=== PATIENT | female | born 1945 | race Caucasian/White ===

== ENCOUNTER 2023-01-12 16:01 | Emergency (ER) | payer MEDICARE, BC, SELFPAY ==
[2023-01-12] VITALS (7 sets, daily range): BP systolic 161–195; BP diastolic 70–85; PULSE 73–80; RESP 14–19; TEMP 36.9; O2SAT 97–100; BMI 22.4
--- NOTE | 2023-01-12 16:12 | DI.RAD.S_ITS ---
PROCEDURE: XR CHEST 1V INDICATIONS: chest pain TECHNIQUE: One view of the chest was acquired. COMPARISON: [facility], , CHEST 2VW, 01/06/2015, 15:18. FINDINGS: Surgical changes and devices: None. Lungs and pleura: Lungs are clear. No pleural effusions or pneumothorax. Mediastinum: Mediastinal contours appear normal. Heart size is normal. Bones and chest wall: No suspicious bony lesions. Overlying soft tissues appear unremarkable. IMPRESSION: No acute cardiopulmonary disease. Dictated by: Venus Sotelo M.D. on 01/12/2023 at 16:34 Approved by: Venus Sotelo M.D. on 01/12/2023 at 16:35
--- NOTE | 2023-01-12 16:17 | DI.CT.S_ITS ---
PROCEDURE: CT HEAD/BRAIN WO CON INDICATIONS: syncope/hit head TECHNIQUE: Noncontrast 4.5 mm thick angled axial sections acquired from the foramen magnum to the vertex, with coronal and sagittal reformats. For radiation dose reduction, the following was used: automated exposure control, adjustment of mA and/or kV according to patient size. COMPARISON: None. FINDINGS: Image quality: Excellent. CSF spaces: Basal cisterns are patent. No extra-axial fluid collections. The ventricles are symmetric in size and shape. Brain: No intracranial bleeds or masses. There is cerebral volume loss for age, with resultant ventricular and sulcal prominence. There are periventricular and deep white matter chronic small vessel ischemic changes. There is intracranial internal carotid artery atherosclerosis. Skull and face: Calvarium and visualized facial bones appear intact, without suspicious lesions. Sinuses: Visualized sinuses and mastoids are clear. IMPRESSION: 1. No acute intracranial abnormalities. 2. Cerebral volume loss and chronic microvascular ischemic changes. Dictated by: Venus Sotelo M.D. on 01/12/2023 at 16:40 Approved by: Venus Sotelo M.D. on 01/12/2023 at 16:41
--- NOTE | 2023-01-12 16:17 | DI.CT.S_ITS ---
PROCEDURE: CT CERVICAL SPINE WO CON INDICATIONS: syncope/hit head TECHNIQUE: Noncontrast 3 mm thick sections acquired from the skull base to the T4 level. Sagittal and coronal reformats were then constructed. For radiation dose reduction, the following was used: automated exposure control, adjustment of mA and/or kV according to patient size. COMPARISON: None. FINDINGS: Image quality: Excellent. Bones: No fractures or dislocations. There is grade 1 anterolisthesis of C4 on C5 and C6 and C7. Moderate degenerative disc disease at C3-C4, C4-C5, C5-C6 and C6-C7. There is severe bilateral facet arthropathy, most pronounced at C4-C5 and C5-C6 on the left and C6-C7 on the right. Visualized superior ribs are intact. Soft tissues: Prevertebral soft tissues are normal in thickness. No paravertebral hematomas. No apical pneumothoraces. IMPRESSION: 1. No acute osseous abnormality. 2. Degenerative changes in cervical spine. Dictated by: Venus Sotelo M.D. on 01/12/2023 at 16:41 Approved by: Venus Sotelo M.D. on 01/12/2023 at 16:45
[2023-01-12 17:21] LABS: Add Manual Diff / Slide Review NO; Basophils Absolute Auto 100 /uL (0-100); Basophils Percent Auto 0.5 % (0-2); Eosinophils Absolute Auto 0 /uL (0-450); Eosinophils Percent Auto 0.4 % (2-4); Hematocrit 36.2 % (36-46); Hemoglobin 12.2 g/dL (12.0-16.0); Lymphocytes Absolute Auto 1700 /uL (1100-4500); Lymphocytes Percent Auto 15.3 % (25-40); Mean Corpuscular HGB Conc 33.6 % (30-36); Mean Corpuscular Hemoglobin 32.3 PG (26-34); Mean Corpuscular Volume 96.1 fL (80-100); Monocytes Absolute Auto 1000 /uL (0-900); Monocytes Percent Auto 9.3 % (3-14); Neutrophils Absolute Auto 8300 /uL (1500-7000); Neutrophils Percent Auto 74.5 % (50-75); Platelet Count 177 X10^3/uL (150-400); Red Blood Cell Count 3.77 X10^6/uL (4.0-5.2); Red Cell Distribution Width 13.7 % (11.6-14.8); White Blood Cell Count 11.1 X10^3/uL (4.5-11.0)
[2023-01-12 17:34] LABS: PTT Partial Thromboplastin Tim 27 SECONDS (26-36)
[2023-01-12 17:37] LABS: Alanine Aminotransferase 22 IU/L (<35); Albumin 4.4 g/dL (3.5-5.0); Albumin Globulin Ratio 1.4 (1.0-2.8); Alkaline Phosphatase 80 U/L (38-126); Aspartate Aminotransferase 33 IU/L (14-36); BUN Creatinine Ratio 22.8 (6-22); Bilirubin Total 1.3 mg/dL (0.2-1.3); Blood Urea Nitrogen 13 mg/dL (7-17); Carbon Dioxide 27 mmol/L (22-32); Chloride 102 mmol/L (98-107); Creatine Kinase 198 U/L (30-135); Estimated Glomerular Filt Rate > 60 mL/min (>60); Globulin 3.2 g/dL (1.7-4.1); Glucose 106 mg/dL (80-110); HEMOLYSIS < 15 (0-50); Lipase 49 U/L (23-300); Magnesium 1.9 mg/dL (1.6-2.3); Potassium 3.9 mmol/L (3.4-5.1); Sodium 136 mmol/L (137-145); Total Protein 7.6 g/dL (6.3-8.2)
[2023-01-12 17:46] LABS: Troponin I < 0.012 ng/mL (0.01-0.034)
[2023-01-12] MEDS: LOSARTAN 25 MG TABLET PO (19:50)
[2023-01-12] MEDS: ATORVASTATIN 20 MG TABLET PO (19:50)
--- NOTE | 2023-01-12 20:25 | ED.SYNCOPE ---
HPI - Syncope General Chief Complaint: Syncope Stated Complaint: fell [place] in [place]/syncope/head inj Time Seen by Provider: 01/12/23 19:14 Source: patient Mode of arrival: Ambulatory Limitations: no limitations History of Present Illness HPI narrative: Patient is a 77-year-old female history of hypertension hyperlipidemia presenting today with a syncopal episode around 3:00 a.m. while on a boat. She reports that she got up to use the ?head? then suddenly she passed out hitting her head. She then proceeded to vomit at least 10 times over the next 1 hour. No numbness tingling or weakness. She is not on antiplatelet or anti coagulation medication. She has not shown up for over 12 hours. Awake alert. She denies any fever or chills. No chest pain palpitations or shortness of breath. No abdominal pain. Related Data Home Medications Medication Instructions Recorded Confirmed [VITAMIN D] Unknown ##0 07/16/16 aspirin 81 mg chewable tablet 81 mg PO QDAY ##0 07/16/16 [co-q-10] 100 mg ##0 02/01/17 Previous Rx's Medication Instructions Recorded cyanocobalamin (vitamin B-12) 1,000 mg (1000 mL) IM SEE 08/31/16 1,000 mcg/mL injection solution INSTRUCTIONS #10 vials simvastatin 20 mg tablet 20 mg PO HS #90 tabs 09/01/16 losartan 25 mg tablet 25 mg PO QDAY #90 tabs 02/01/17 ondansetron 4 mg disintegrating 4 mg PO Q8H PRN nausea and 01/12/23 tablet vomiting #10 tabs Allergies Allergy/AdvReac Type Severity Reaction Status Date / Time No Known Drug Allergies Allergy Unknown Unverified 09/28/17 12:02 [NO KNOWN DRUG ALLERGIES] YELLOW JACKET VENOM Allergy Severe ANAPHYLAXIS, Uncoded 09/28/17 12:02 SWELLING Review of Systems Review of Systems ROS Unobtainable: All systems reviewed & are unremarkable except as noted in HPI and below Patient History Social History Smoking Status: Never smoker Smoking Status: Never smoker alcohol intake frequency: 0-2 drinks per day Substance Use Type: does not use Exam Initial Vital Signs Initial Vital Signs: Vital Signs Temperature 98.4 F 01/12/23 16:05 Pulse Rate 80 01/12/23 16:05 Respiratory Rate 18 01/12/23 16:05 Blood Pressure 185/82 H 01/12/23 16:05 Pulse Oximetry 98 01/12/23 16:05 Oxygen Delivery Method Room Air 01/12/23 16:05 GENERAL: Alert well-appearing 77-year-old female HEENT: Head cm laceration at hairline EOMI, pupils reactive, face symmetric, moist mucous membranes CARDIOVASCULAR: Regular rate and rhythm without murmurs, rubs or gallops. RESPIRATORY: Breath sounds equal bilaterally, no wheezes rales or rhonchi. ABDOMEN: Soft, nontender. Normoactive bowel sounds all 4 quadrants. No guarding or rebound. EXTREMITIES: Normal range of motion, no clubbing or edema. Neurovascularly intact NEUROLOGICAL: Alert and oriented x4.Normal gait and speech. Cranial nerves II through XII grossly intact. Good sikrwk-sq-myoj, good qnfa-[id number], strength equal bilaterally, no dysarthria or aphasia, sensation in tact to soft touch bilaterally, no visual changes, no facial droop SKIN: Warm, dry, no laceration, no petechiae, no rashes or lesions. Scores NIH Stroke Scale Level of Conciousness: Alert, keenly responsive Ask month/age: Answers both questions correctly. Open/close eyes, close hand: Performs both tasks correctly Best gaze horizontal: Normal Visual mcnulty: No visual loss Facial palsy: Normal symetrical movement Left arm drift: No drift for full 10 sec Right arm drift: No drift for full 10 sec Left leg drift: No drift for full 5 sec Right leg drift: No drift for full 5 sec Limb ataxia: Absent Sensory on face/arms/legs: Normal, no sensory loss Best language: No aphasia, normal Dysarthria: Normal Extinction or inattention: No abnormality Total NIH Stroke scale score: 0 Course Orders Ordered: Discontinued Medications Atorvastatin Calcium (Atorvastatin 20 Mg Tablet) 20 mg PO NOW ONE Stop: 01/12/23 19:46 Last Admin: 01/12/23 19:50 Dose: 20 mg Documented By: Losartan Potassium (Losartan 25 Mg Tablet) 25 mg PO NOW ONE Stop: 01/12/23 19:46 Last Admin: 01/12/23 19:50 Dose: 25 mg Documented By: Vital Signs Vital signs: Vital Signs - 8 hr 01/12/23 16:05 01/12/23 19:02 01/12/23 19:12 Temperature 98.4 F Pulse Rate 80 79 Respiratory Rate 18 Blood Pressure 185/82 H 188/85 H Pulse Oximetry 98 100 Oxygen Delivery Method Room Air 01/12/23 19:12 01/12/23 19:30 01/12/23 19:30 Temperature Pulse Rate 76 74 Respiratory Rate Blood Pressure 195/83 H Pulse Oximetry 99 99 Oxygen Delivery Method 01/12/23 20:00 01/12/23 20:00 01/12/23 20:30 Temperature Pulse Rate 73 Respiratory Rate 14 Blood Pressure 176/79 H 161/70 H Pulse Oximetry 99 Oxygen Delivery Method 01/12/23 20:30 Temperature Pulse Rate 79 Respiratory Rate Blood Pressure Pulse Oximetry 98 Oxygen Delivery Method MDM - Syncope Lab Data 01/12/23 17:10 01/12/23 17:10 Labs: Lab Results 01/12/23 01/12/23 01/12/23 Range/Units 17:10 17:10 17:10 WBC 11.1 H (4.5-11.0) X10^3/uL RBC 3.77 L (4.0-5.2) X10^6/uL Hgb 12.2 (12.0-16.0) g/dL Hct 36.2 (36-46) % MCV 96.1 (80-100) fL MCH 32.3 (26-34) PG MCHC 33.6 (30-36) % RDW 13.7 (11.6-14.8) % Plt Count 177 (150-400) X10^3/uL Neut % (Auto) 74.5 (50-75) % Lymph % (Auto) 15.3 L (25-40) % Foster % (Auto) 9.3 (3-14) % Eos % (Auto) 0.4 L (2-4) % Baso % (Auto) 0.5 (0-2) % Neut # (Auto) 8300 H (8682-8337) /uL Lymph # (Auto) 1700 (9117-9475) /uL Foster # (Auto) 1000 H (0-900) /uL Eos # (Auto) 0 (0-450) /uL Baso # (Auto) 100 (0-100) /uL PT 11.0 (10.1-12.7) SECONDS INR 1.0 (0.9-1.3) APTT 27 (26-36) SECONDS Sodium 136 L (137-145) mmol/L Potassium 3.9 (3.4-5.1) mmol/L Chloride 102 (98-107) mmol/L Carbon Dioxide 27 (22-32) mmol/L BUN 13 (7-17) mg/dL Creatinine 0.57 (0.52-1.04) mg/dL Estimated GFR > 60 (>60) mL/min BUN/Creatinine Ratio 22.8 H (6-22) Glucose 106 (80-110) mg/dL Calcium 9.0 (8.4-10.2) mg/dL Magnesium 1.9 (1.6-2.3) mg/dL Total Bilirubin 1.3 (0.2-1.3) mg/dL AST 33 (14-36) IU/L ALT 22 (<35) IU/L Alkaline Phosphatase 80 (38-126) U/L Total Creatine Kinase 198 H (30-135) U/L Troponin I < 0.012 (0.01-0.034) ng/mL Total Protein 7.6 (6.3-8.2) g/dL Albumin 4.4 (3.5-5.0) g/dL Globulin 3.2 (1.7-4.1) g/dL Albumin/Globulin Ratio 1.4 (1.0-2.8) Lipase 49 (23-300) U/L Urine Dip Bedside Urine Glucose Negative Bedside Urine Bilirubin - Negative Bedside Urine Ketone - Negative Urine Specific [place] 1.010 Bedside Urine Occult Blood - Negative Bedside Urine pH 7.0 Bedside Urine Protein - Negative Bedside Urine Urobilinogen - Negative Bedside Urine Nitrite - Negative Bedside Urine Leukocytes - Negative Esterase Imaging Data Chest x-ray: Radiologist's Impression: PROCEDURE:? XR CHEST 1V ? INDICATIONS:? chest pain ? TECHNIQUE:? One view of the chest was acquired.? ? COMPARISON:? [facility], , CHEST 2VW, 01/06/2015, 15:18. ? FINDINGS:? ? Surgical changes and devices:? None.? ? Lungs and pleura:? Lungs are clear.? No pleural effusions or pneumothorax.? ? Mediastinum:? Mediastinal contours appear normal.? Heart size is normal.? ? Bones and chest wall:? No suspicious bony lesions.? Overlying soft tissues appear unremarkable.? ? IMPRESSION:? No acute cardiopulmonary disease. ? ? Dictated by: Venus Sotelo M.D. on 01/12/2023 at 16:34 CT scan - head: Radiologist's Impression: PROCEDURE:? CT HEAD/BRAIN WO CON ? INDICATIONS:? syncope/hit head ? TECHNIQUE:? Noncontrast 4.5 mm thick angled axial sections acquired from the foramen magnum to the vertex, with coronal and sagittal reformats.? For radiation dose reduction, the following was used:? automated exposure control, adjustment of mA and/or kV according to patient size.? ? COMPARISON:? None. ? FINDINGS:? Image quality:? Excellent.? ? CSF spaces:? Basal cisterns are patent.? No extra-axial fluid collections.? The ventricles are symmetric in size and shape.? ? Brain:? No intracranial bleeds or masses.? There is cerebral volume loss for age, with resultant ventricular and sulcal prominence.? There are periventricular and deep white matter chronic small vessel ischemic changes.? There is intracranial internal carotid artery atherosclerosis.? ? Skull and face:? Calvarium and visualized facial bones appear intact, without suspicious lesions.? ? Sinuses:? Visualized sinuses and mastoids are clear.? ? IMPRESSION:? ? 1. No acute intracranial abnormalities. ? 2. Cerebral volume loss and chronic microvascular ischemic changes. ? ? ? Dictated by: Venus Sotelo M.D. on 01/12/2023 at 16:40 CT - cervical spine: Radiologist's Impression: PROCEDURE:? CT CERVICAL SPINE WO CON ? INDICATIONS:? syncope/hit head ? TECHNIQUE:? Noncontrast 3 mm thick sections acquired from the skull base to the T4 level.? Sagittal and coronal reformats were then constructed.? For radiation dose reduction, the following was used:? automated exposure control, adjustment of mA and/or kV according to patient size.? ? COMPARISON:? None. ? FINDINGS:? Image quality:? Excellent.? ? Bones:? No fractures or dislocations.? There is grade 1 anterolisthesis of C4 on C5 and C6 and C7. ? Moderate degenerative disc disease at C3-C4, C4-C5, C5-C6 and C6-C7.? There is severe bilateral facet arthropathy, most pronounced at C4-C5 and C5-C6 on the left and C6-C7 on the right.? Visualized superior ribs are intact.? ? Soft tissues:? Prevertebral soft tissues are normal in thickness.? No paravertebral hematomas.? No apical pneumothoraces.? ? ? IMPRESSION:? ? 1. No acute osseous abnormality.? 2. Degenerative changes in cervical spine.? Dictated by: Venus Sotelo M.D. on 01/12/2023 at 16:41 ? ? Approved by: Venus Sotelo M.D. on 01/12/2023 at 16:45 ? ECG Data Interpretation: EKG 1. Sinus rhythm rate 76 VA interval 186 QRS 144 QTC 479 right bundle-branch block noted no significant ST changes no priors to compare EKG 2. Sinus rhythm rate 75 right bundle-branch block no ST changes similar to prior MDM Narrative Medical decision making narrative: patient is 77-year-old female presenting today after a syncopal episode nausea vomiting. He is now not vomiting for at least 10-12 hours. She is no focal deficits. She does have a small superficial laceration at her hairline with good skin approximation. In easily be held together with the Steri-Strips. Blood work is overall reassuring. minimal leukocytosis of 11.1, no significant electrolyte abnormality or MARY. tolerating fluids no longer nauseated or vomiting. Not requiring anything for pain. He reports that the [place] unlikely to be seasickness. She is not on any antiplatelet or anticoagulation medication no evidence of intracranial hemorrhage. At this time unclear if vomiting is related to head injury or not seems to be resolved now. She is hesitant even take a prescription of Zofran. No evidence of infection or UTI. At this time no need for further workup Discharge Plan Departure Patient Disposition: Home Clinical Impression: Syncope Instructions: DI for Syncope in Adults (Fainting) Activity Restrictions/Additional Instructions: *You have been diagnosed with syncope *What to do: At this time keep laceration closed with Steri-Strips. Increase fluids as tolerated eat as tolerated *Continue to take medications as directed Zofran 4 mg every 8 hours if needed for nausea or vomiting *Follow up with your primary care provider in 2-3 days or call [phone] *Return to ER if you should have persistent vomiting unable to keep fluids down numbness tingling weakness facial droop difficulty speaking or any new, worsening or concerning symptoms Prescriptions: New ondansetron 4 mg tablet,disintegrating 4 mg PO Q8H PRN (Reason: nausea and vomiting) Qty: 10 0RF No Action aspirin 81 MG tablet,chewable 81 mg PO QDAY Qty: 0 [VITAMIN D] Unknown Qty: 0 cyanocobalamin (vitamin B-12) 1,000 MCG/1 ML solution 1,000 mg IM SEE INSTRUCTIONS Qty: 10 0RF simvastatin 20 MG tablet 20 mg PO HS Qty: 90 3RF [co-q-10] 100 mg Qty: 0 losartan 25 MG tablet 25 mg PO QDAY Qty: 90 1RF Referrals: Libra Gamez ARNP [Primary Care Provider] - Stand Alone Forms: Patient Portal/API
== END 2023-01-12 21:10 | disposition home or self-care (01) ==
PROVIDERS: Emergency Medicine; Emergency Provider Emergency Medicine; Family Provider Nurse Practitioner; PCP Nurse Practitioner
DX: S09.90XA Unspecified injury of head, initial encounter (principal); R55 Syncope and collapse; R11.2 Nausea with vomiting, unspecified; S01.01XA Laceration without foreign body of scalp, initial encounter; W19.XXXA Unspecified fall, initial encounter
CPT/HCPCS: 36415; 70450; 71045; 72125; 80053; 81003; 82550; 83690; 83735; 84484; 85025; 85610; 85730; 93005; 99284

== ENCOUNTER → 2025-04-01 10:15 | Outpatient (CLI) | payer MEDICARE, SELFPAY ==
--- NOTE | 2025-04-01 10:17 | DI.RAD.S_ITS ---
PROCEDURE: XR DEXA AXIAL SKELETON INDICATIONS: Postmenopausal Screening COMPARISON: [facility], , DEXA AXIAL SKELETON, 07/16/2015, 14:17. FINDINGS: Lumbar Spine: L1-L4. Bone mineral density 1.210 g/cm2, T score 1.5. Left Femoral Neck: Bone mineral density 0.763 g/cm2, T score -0.8. Left Hip: Bone mineral density 0.909 g/cm2, T score -0.3. Fracture Risk Calculation (when applicable): 10-year fracture risk of a major osteoporotic fracture 11 percent and of a hip fracture 1.8 percent. (T score greater or equal to -1.0 to: NORMAL) (T score from -1.1 to -2.4: OSTEOPENIA) (T score less than or equal to -2.5: OSTEOPOROSIS) IMPRESSION: Bone mineral density is within normal limits. Follow-up guidelines as follows: Osteoporosis: Consider a repeat DEXA and Vertebral Fracture Assessment (VFA) exam in 2 years or sooner if medically necessary, to reassess this patient's status. Osteopenia: Consider a repeat DEXA in 2-3 years to reassess this patient's status, or if there is a new clinical indication. Normal: Consider a repeat DEXA in 5 years or sooner, or if there is a new clinical indication. All treatment decisions require clinical judgment and consideration of individual patient factors, including patient preferences, comorbidities, previous drug use, risk factors not captured in the FRAX model (e.g., frailty, falls, vitamin D deficiency, increased bone turnover, interval significant decline in bone density ) and possible under- or over-estimation of fracture risk by FRAX. In addition, the NOF Guide recommends that FDA-approved medical therapies be considered in postmenopausal women and men age >= 50 years with a: * Hip or vertebral (clinical or morphometric) fracture * T-score of <=-2.5 at the spine or hip * Ten-year fracture probability by FRAX of >= 3% for hip fracture or >=20% for major osteoporotic fracture. Dictated by: Jose Alcazar M.D. on 04/01/2025 at 15:05 Approved by: Jose Alcazar M.D. on 04/01/2025 at 15:06
== END ==
PROVIDERS: Family Provider Nurse Practitioner; PCP Physician Assistant; Referring Provider Physician Assistant; Visit Provider Physician Assistant
DX: Z78.0 Asymptomatic menopausal state (principal)
CPT/HCPCS: 77080